=== PATIENT | female | born 1965 | race Caucasian/White ===

== ENCOUNTER → 2024-04-25 15:15 | Outpatient (CLI) | payer OTHER, SELFPAY ==
--- NOTE | 2024-04-25 15:21 | DI.CT.S_ITS ---
PROCEDURE: CT HEAD/BRAIN WO CON INDICATIONS: head trauma TECHNIQUE: Noncontrast 4.5 mm thick angled axial sections acquired from the foramen magnum to the vertex, with coronal and sagittal reformats. For radiation dose reduction, the following was used: automated exposure control, adjustment of mA and/or kV according to patient size. COMPARISON: None. FINDINGS: Image quality: Diagnostic. CSF spaces: Basal cisterns are patent. No extra-axial fluid collections. Ventricles are normal in size and shape. Brain: No midline shift. No intracranial masses or hemorrhage. Ramos-white matter interface is normal. Skull and face: Calvarium and visualized facial bones are intact, without suspicious lesions. Sinuses: Visualized sinuses and mastoids are clear. IMPRESSION: No acute intracranial pathology. Dictated by: Wellington Joshi M.D. on 04/25/2024 at 16:24 Approved by: Wellington Joshi M.D. on 04/25/2024 at 16:25
== END ==
PROVIDERS: PCP Nurse Practitioner Family; Referring Provider Preventive Medicine Public Health & General Preventive Medicine; Visit Provider Preventive Medicine Public Health & General Preventive Medicine
DX: G44.309 Post-traumatic headache, unspecified, not intractable (principal)
CPT/HCPCS: 70450

== ENCOUNTER 2024-05-07 14:55 | Emergency (ER) | payer OTHER, SELFPAY ==
[2024-05-07 14:59] VITALS: BP 141/81; PULSE 76; RESP 18; TEMP 36.9; O2SAT 97; BMI 26.2
--- NOTE | 2024-05-07 15:43 | ED.HA ---
HPI - Headache <Paige Simpson PA-C - Last Filed: 05/07/24 17:15> General Chief Complaint: Headache Stated Complaint: headaches, facial pain sp trauma Time Seen by Provider: 05/07/24 15:36 Mode of arrival: Ambulatory History of Present Illness HPI Narrative: 58-year-old female presents to the ED with a right-sided headache and facial pain for 6 weeks. Patient states that she accidentally walked into a glass wall when at work, striking the left forehead. Patient was wearing glasses at the time, and the glasses dug into her brow and nose. Patient has since been evaluated had a normal head CT. Patient is here in the ED since she continues to have left brow pain and a headache. Patient states that the pain waxes and wanes throughout the day but has not completely gone away. No nausea, vomiting. No vision changes. Patient also complains of a sore neck. Related Data Allergies Allergy/AdvReac Type Severity Reaction Status Date / Time codeine AdvReac Nausea Verified 05/07/24 14:59 Review of Systems <Paige Simpson PA-C - Last Filed: 05/07/24 17:15> Constitutional Constitutional: Denies chills, Denies fatigue, Denies fever(s), Denies frequent falls, Reports headache(s), Denies lethargy and Denies weakness Eyes Eyes: Denies change in vision, Denies eye discharge, Denies irritation and Denies loss of vision ENT Ears, Nose, Mouth, and Throat: Denies change in voice, Denies dizziness, Reports facial pain, Reports headache(s), Reports neck pain, Denies sore throat and Denies throat swelling Cardiovascular Cardiovascular: Denies chest pain, Denies irregular heart rhythm, Denies lightheadedness, Denies palpitations, Denies dyspnea, Denies dyspnea on exertion and Denies orthopnea Respiratory Respiratory: Denies cough, Denies dyspnea, Denies dyspnea on exertion and Denies wheezing Gastrointestinal Gastrointestinal: Denies abdominal pain, Denies change in bowel habits, Denies diarrhea, Denies nausea and Denies vomiting Musculoskeletal Musculoskeletal: Reports neck pain and Denies numbness Integumentary/Breasts Skin/Breast: Denies pruritus, Denies erythema, Denies rash and Denies wounds Neurologic Neurologic: Denies behavioral changes, Denies confusion, Denies dizziness, Denies frequent falls, Reports headache(s), Denies loss of vision, Denies numbness and Denies weakness Psychiatric Psychiatric: Denies anxiety, Denies behavioral changes, Denies confusion, Denies depression, Denies homicidal ideation and Denies suicidal ideation Endocrine Endocrine: Denies fatigue, Denies flushing and Denies palpitations Hematologic/Lymphatic Hematologic/Lymphatic: Denies easy bruising Allergic/Immunologic Allergic/Immunologic: Denies urticaria, Denies throat swelling and Denies wheezing Patient History <Paige Simpson PA-C - Last Filed: 05/07/24 17:15> Social History Smoking Status: Never smoker Smoking Status: Never smoker Exam <Paige Simpson PA-C - Last Filed: 05/07/24 17:15> Narrative Exam Narrative: Const General:?cooperative, healthy appearing and comfortable [facility] Head:?normal to inspection Ears:?hearing grossly normal bilaterally Nose:?external nose normal Face and sinus:?normal facial exam and sinuses nontender Mouth:?oral mucosae normal Throat:?posterior oropharynx normal Eyes General:?appearance normal, both eyes and all related structures Neck Neck:?normal visual inspection and no lymphadenopathy noted; no midline tenderness to palpation. There is full range of motion Resp Effort & Inspection:?normal respiratory effort Auscultation:?clear to auscultation bilaterally Cardio Rate:?regular rate Rhythm:?regular rhythm Neuro General:?patient alert, patient awake and patient oriented x3; PERRLA; CN 1 through 12 intact bilaterally; gait is normal Initial Vital Signs Initial Vital Signs: Vital Signs Temperature 98.5 F 05/07/24 14:59 Pulse Rate 76 05/07/24 14:59 Respiratory Rate 18 05/07/24 14:59 Blood Pressure 141/81 H 05/07/24 14:59 Pulse Oximetry 97 05/07/24 14:59 Oxygen Delivery Method Room Air 05/07/24 14:59 <Erica Gary DO - Last Filed: 05/11/24 12:56> Initial Vital Signs Initial Vital Signs: Vital Signs Temperature 98.5 F 05/07/24 14:59 Pulse Rate 76 05/07/24 14:59 Respiratory Rate 18 05/07/24 14:59 Blood Pressure 141/81 H 05/07/24 14:59 Pulse Oximetry 97 05/07/24 14:59 Oxygen Delivery Method Room Air 05/07/24 14:59 Course <Paige Simpson PA-C - Last Filed: 05/07/24 17:15> Orders Ordered: ED Orders 05/07/24 15:58 CT facial bones wo con Stat Vital Signs Vital signs: Vital Signs - 8 hr 05/07/24 14:59 Temperature 98.5 F Pulse Rate 76 Respiratory Rate 18 Blood Pressure 141/81 H Pulse Oximetry 97 Oxygen Delivery Method Room Air <Erica Gayr DO - Last Filed: 05/11/24 12:56> Orders Ordered: ED Orders 05/07/24 15:58 CT facial bones wo con Stat Vital Signs Vital signs: Vital Signs - 8 hr 05/07/24 14:59 Temperature 98.5 F Pulse Rate 76 Respiratory Rate 18 Blood Pressure 141/81 H Pulse Oximetry 97 Oxygen Delivery Method Room Air MDM - Headache <Paige Simpson PA-C - Last Filed: 05/07/24 17:15> MDM Narrative Medical decision making narrative: 58-year-old female presents to the ED with a right-sided headache and facial pain for [address] facial bones which was without acute findings. There is no midline tenderness. Patient's neck pain most consistent with a whiplash type injury. Headache consistent with postconcussion syndrome. Patient counseled on physical and cognitive rest. Recommend Tylenol, ibuprofen to completely resolve the headache. Recommend follow-up with PCP for further evaluation and treatment. ED return precautions discussed with patient. Patient verbalized understanding. Medical records reviewed: Yes Discharge Plan Departure Patient Disposition: Home Clinical Impression: Postconcussion syndrome Instructions: DI for Postconcussion Syndrome Activity Restrictions/Additional Instructions: You were evaluated in the ED today for a headache. Your symptoms are consistent with postconcussion syndrome after a head injury. It is advised that you exercise physical and cognitive rest until your symptoms resolve. Cognitive rest includes reading books, looking at screens. Please also take 800 mg of ibuprofen every 8 hours with food, 1000 mg of Tylenol every 8 hours. You may staggered the ibuprofen and Tylenol so you are getting some medicine every 4 hours. You may do this until your headache resolves. Please follow-up with your PCP as soon as possible for further evaluation. Return to the ED if you have worsening symptoms. Referrals: Jennifer Viera ARNP [Primary Care Provider] - Stand Alone Forms: Patient Portal/API/Survey, Work Release Note ED Sign-out <Erica Gary DO - Last Filed: 05/11/24 12:56> Cosign ED Attending Rosiature Attestation: I was available for consultation.
--- NOTE | 2024-05-07 15:58 | DI.CT.S_ITS ---
PROCEDURE: CT FACIAL BONES WO CON INDICATIONS: Injury TECHNIQUE: Noncontrast 2.5 mm thick axial images acquired from the mandible through the frontal sinuses, with coronal and sagittal reformatting. For radiation dose reduction, the following was used: automated exposure control, adjustment of mA and/or kV according to patient size. COMPARISON: None. FINDINGS: Image quality: Excellent. Bones and teeth: Orbital mac are intact. Sinus mac show no fracture or deformity. Nasal bones and septum are intact. Visualized portions of the mandible demonstrate no fractures or subluxation. Zygomatic arches are intact. Pterygoid plates are intact. Visualized portions of the skull base and auditory canals are intact. Sinuses: Paranasal sinuses are aerated, without fluid levels, mucosal thickening, or mucoceles. Mastoid air cells are aerated. Soft tissues: No edema, masses, or fluid collections. No enlarged lymph nodes. No soft tissue lacerations or debris. Vascular: Visualized vascular structures appear normal in the absence of contrast. Bony vascular foramina and canals are intact. IMPRESSION: No acute facial fractures. Dictated by: Wellington Joshi M.D. on 05/07/2024 at 16:15 Approved by: Wellington Joshi M.D. on 05/07/2024 at 16:18
[2024-05-07 17:10] VITALS: BP 113/75; PULSE 62; RESP 18; O2SAT 98
== END 2024-05-07 17:11 | disposition home or self-care (01) ==
PROVIDERS: Emergency Provider Student in an Organized Health Care Education/Training Program; PCP Nurse Practitioner Family
DX: F07.81 Postconcussional syndrome (principal); M54.2 Cervicalgia; W22.01XA Walked into wall, initial encounter
CPT/HCPCS: 70486; 99281; 99284

== ENCOUNTER → 2024-12-28 07:50 | Outpatient (CLI) | payer OTHER, SELFPAY ==
--- NOTE | 2024-12-28 07:53 | DI.MG.S_ITS ---
MM screening mammo BI: 12/28/2024. BI-RADS: 1 CLINICAL: 59-year old female for bilateral screening mammogram. Tyrer-Cuzick lifetime risk of 9.1%. No personal or first-degree family history of breast cancer. PRIOR EXAMS 03/17/2023, outside priors 02/09/2021, 05/14/2019, 03/21/2018. MAMMOGRAPHY TECHNIQUE: 2D and 3D (tomosynthesis) digital mammographic views obtained, with additional images as needed for full coverage. Current study was also evaluated with a Computer Aided Detection (CAD) system. DENSITY C. The breasts are heterogeneously dense, which may obscure small masses. MAMMOGRAPHY FINDINGS Right: Upper Outer at 10:30, Middle depth: There is a (Open Coil) biopsy marker present. Marker is located anterior to margin of target. Bilateral: No suspicious mass, asymmetry, microcalcification, or other abnormality seen. IMPRESSION: * No evidence of malignancy. RECOMMENDATIONS Bilateral * Annual screening mammography. OVERALL ASSESSMENT CATEGORY BI-RADS-1: Negative. [employer] recommends annual screening mammography beginning at age 40 for women with average risk of breast cancer. ELECTRONICALLY SIGNED: Mariela Templeton M.D. on 12/31/2024 at 10:24:44 PM PT Interpreting Station ID: [id number]
== END ==
LOC: MAMMO 07:52
PROVIDERS: PCP Nurse Practitioner Family; Referring Provider Nurse Practitioner Family; Visit Provider Nurse Practitioner Family
DX: Z12.31 Encounter for screening mammogram for malignant neoplasm of breast (principal); R92.333 Mammographic heterogeneous density, bilateral breasts
CPT/HCPCS: 77063; 77067